=== PATIENT | male | born 1985 | race African-American/Black ===

== ENCOUNTER 2023-11-01 13:45 | Emergency (ER) | payer SELFPAY ==
[2023-11-01] MEDS ORDERED: Ibuprofen 800 MG TAB ONE (14:00)
[2023-11-01] MEDS ORDERED: AMOXicillin 250 MG CAP ONE (14:00)
== END 2023-11-01 14:04 | disposition home or self-care (01) ==
LOC: NAV ERS 13:45
DX: K04.7 Periapical abscess without sinus (principal); F17.210 Nicotine dependence, cigarettes, uncomplicated
CPT/HCPCS: 99282